=== PATIENT | female | born 1945 | race Asian ===

== ENCOUNTER → 2017-03-07 | Outpatient (CLI) | payer OTHER ==
[~2017-03-07] MED LIST: GADOBUTROL 10 ML VIAL IVP ONE
[2017-03-07 08:54] LABS: CREATININE 0.7 mg/dL (0.6-1.0); GLOMERULAR FILTRATION RATE > 60
== END ==
LOC: FIMAGING 08:00
PROVIDERS: ATTEND Orthopaedic Surgery Hand Surgery
DX: R22.32 Localized swelling, mass and lump, left upper limb (principal); M65.842 Other synovitis and tenosynovitis, left hand; R93.6 Abnormal findings on diagnostic imaging of limbs
CPT/HCPCS: 73220; A9585